=== PATIENT | female | born 1995 | race Caucasian/White ===

== ENCOUNTER 2019-07-22 15:07 | Emergency (ER) | payer MEDICAID, OTHER ==
[2019-07-22 15:53] LABS: BILIRUBIN,URINE NEGATIVE (NEGATIVE); GLUCOSE, URINE (UA) NEGATIVE (NEGATIVE); KETONES,URINE (UA) NEGATIVE (NEGATIVE); LEUKOCYTE ESTERASE, URINE NEGATIVE (NEGATIVE); NITRITE,URINE NEGATIVE (NEGATIVE); OCCULT BLOOD,URINE NEGATIVE (NEGATIVE); PH,URINE 6.5 PH (5.0-7.5); PROTEIN,URINE NEGATIVE (NEGATIVE); UROBILINOGEN,URINE 0.2 (NORMAL) E.U./dL (NORMAL)
--- NOTE | 2019-07-22 15:54 | ED Physician Documentation ---
History of Present Illness - Stated complaint Stated Complaint: UPPER ABD PX - Chief complaint Chief Complaint: Abd Pain - History obtained from History obtained from: Patient - Additonal information Additional information: Patient comes emergency department complaining of epigastric pain and burning with nausea for the last several days. Patient states that she has not been vomiting. No diarrhea or constipation. Patient has had some dysuria and she is concerned she may have a urinary tract infection. Patient states that she has a history of asthma but that this is not been bothering her lately. No fever or cough. Patient denies any shortness of breath. She has not been exposed to anybody who is been sick. She states she believes her brother may have had gallstones but is not sure if he had a cholecystectomy, as they are not close and she is not privy to that information.Patient states that the symptoms do not seem to be related to any particular activity, meals, or time of day. She has no known history of GERD or ulcer disease. She states that she herself does not have a history of gallstones. She is otherwise healthy. 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 She states she has a history of a tachycardic syndrome in which she Has heart rate elevations up into the 170s, but that this has not been an issue recently, and she has not been noticing tachycardia with her episodes of pain. She states that during the episodes of epigastric pain, which last approximately 1 to 2 hours, she occasionally feels a sense of palpitations. No other complaints at this time. Review of Systems Ten Systems: 10 systems reviewed and negative Constitutional: reports: Reviewed and negative Eyes: reports: Reviewed and negative Ears: reports: Reviewed and negative Nose: reports: Reviewed and negative Throat: reports: Reviewed and negative Cardiac: reports: Reviewed and negative Respiratory: reports: Reviewed and negative GI: reports: Abdominal Pain, Nausea : reports: Reviewed and negative Skin: reports: Reviewed and negative Musculoskeletal: reports: Reviewed and negative Neurologic: reports: Reviewed and negative Psychiatric: reports: Reviewed and negative Endocrine: reports: Reviewed and negative Immunocompromised: reports: Reviewed and negative PD PAST MEDICAL HISTORY - Past Medical History Past Medical History: Yes Respiratory: Asthma - Past Surgical History Past Surgical History: No - Present Medications Home Medications: Ambulatory Orders Medication Instructions Recorded Confirmed Omeprazole 20 mg PO DAILY 30 Days #30 07/22/19 capsule.dr - Allergies Allergies/Adverse Reactions: Allergies Allergy/AdvReac Type Severity Reaction Status Date / Time amoxicillin Allergy Unknown Verified 07/22/19 15:17 Iodinated Contrast Media Allergy Unknown Verified 07/22/19 15:17 iodine Allergy Unknown Verified 07/22/19 15:17 Sulfa (Sulfonamide Allergy Unknown Verified 07/22/19 15:17 Antibiotics) - Social History Does the pt smoke?: No Smoking Status: Never smoker Does the pt drink ETOH?: No Does the pt have substance abuse?: No - Immunizations Immunizations are current?: Yes - POLST Patient has POLST: No PD ED PE NORMAL - Vitals Vital signs reviewed: Yes - General General: Alert and oriented X 3, No acute distress - HEENT HEENT: Atraumatic, PERRL, EOMI, Moist mucous membranes - Neck Neck: Supple, no meningeal sign - Cardiac Cardiac: RRR, No murmur - Respiratory Respiratory: No respiratory distress, Clear bilaterally - Abdomen Abdomen: Soft, Non distended, Other (Patient has moderate epigastric tenderness without rebound or guarding. She has a 3 cm diameter aortic pulse.) - Back Back: No CVA TTP - Derm Derm: Normal color, Warm and dry, No rash - Extremities Extremities: No deformity - Neuro Neuro: Alert and oriented X 3 - Psych Psych: Normal mood, Normal affect Results - Vitals Vitals: Vital Signs - 24 hr 07/22/19 07/22/19 07/22/19 15:11 15:16 17:31 Temperature 36.2 C L 36.6 C Heart Rate 75 75 65 Respiratory 16 16 16 Rate Blood Pressure 114/76 114/76 115/69 O2 Saturation 96 96 100 07/22/19 18:32 Temperature Heart Rate 62 Respiratory 14 Rate Blood Pressure 102/60 O2 Saturation 100 Oxygen O2 Source Room air - Labs Labs: Laboratory Tests 07/22/19 15:45 Urine Color YELLOW Urine Clarity CLEAR Urine pH 6.5 Ur Specific [place] 1.025 Urine Protein NEGATIVE Urine Glucose (UA) NEGATIVE Urine Ketones NEGATIVE Urine Occult Blood NEGATIVE Urine Nitrite NEGATIVE Urine Bilirubin NEGATIVE Urine Urobilinogen 0.2 (NORMAL) Ur Leukocyte Esterase NEGATIVE Ur Microscopic Review NOT INDICATED Urine Culture Comments NOT INDICATED Urine HCG, Qual NEGATIVE - Rads (name of study) Chest x-ray Radiology: Final report received, EMP read indepedently, See rad report (Final radiologist impression:Normal 2 view chest radiography.) Limited abdominal ultrasound Radiology: Final report received, See rad report (Final radiologist interpretation: No gallstones or findings of acute cholecystitis or biliary dilatation.) PD MEDICAL DECISION MAKING - ED course Complexity details: reviewed results, re-evaluated patient, considered differential, d/w patient ED course: I discussed with the patient that her symptoms seem most consistent with reflux or gastritis. However, given the family history of gallstones, I did feel that patient should be evaluated for possible Sweetie lithiasis/cholecystitis. Ultrasound was ordered to this end, and was found to be normal. Urinalysis and chest x-ray were also checked, and negative. I discussed with the patient that I do not think that her history or physical exam indicates an aortic aneurysm. I feel she most likely has GERD or inlet gastritis as cause of her discomfort, and I will prescribe omeprazole for her. She may also use [id number] Mylanta or Maalox. She is encouraged to follow up with her primary care physician if her symptoms persist for more than a couple of weeks. We have also discussed the usual indications for return to the emergency department. Departure - Departure Disposition: 01 Home, Self Care Clinical Impression: Abdominal pain Qualifiers: Abdominal location: epigastric Qualified Code(s): R10.13 - Epigastric pain Condition: Good Instructions: ED Abdominal Pain Unkn Cause Prescriptions: Omeprazole 20 mg PO DAILY 30 Days #30 capsule. Comments: Your urinalysis, chest x-ray, and abdominal ultrasound all look good. Most likely, you have some degree of reflux of gastric contents that has caused inflammation of the latter portion of the esophagus and the upper part of the stomach. You may use [id number] Maalox or Mylanta to help with this, and you may also take the omeprazole prescribed. There is no evidence of an abdominal aortic aneurysm or other emergent condition today. Discharge Date/Time: 07/22/19 18:34
[2019-07-22 15:55] LABS: CLARITY,URINE CLEAR (CLEAR); HCG UR QUAL NEGATIVE
--- NOTE | 2019-07-22 16:43 | XRAY Report ---
Reason: chest pain Procedure Date: 07/22/2019 Accession Number: [id number] / [id number] Procedure: XR - Chest 2 View X-Ray CPT Code: 82762 Final Report FULL RESULT: EXAM: CHEST RADIOGRAPHY EXAM DATE: 07/22/2019 04:18 PM. CLINICAL HISTORY: Chest pain. COMPARISON: None. TECHNIQUE: 2 views. FINDINGS: Lungs/Pleura: No focal opacities evident. No pleural effusion. No pneumothorax. Normal volumes. Mediastinum: Heart and mediastinal contours are unremarkable. Other: None. IMPRESSION: Normal 2-view chest radiography. RADIA
--- NOTE | 2019-07-22 17:19 | Ultrasound Report ---
Reason: epigastric pain, nausea, FH gallstones Procedure Date: 07/22/2019 Accession Number: [id number] / [id number] Procedure: US - Abdomen Limited CPT Code: Final Report FULL RESULT: EXAM: ABDOMEN ULTRASOUND LIMITED, RUQ EXAM DATE: 07/22/2019 04:39 PM. CLINICAL HISTORY: Epigastric pain, nausea, FH gallstones. COMPARISON: None. TECHNIQUE: Real-time scanning was performed with static images obtained. FINDINGS: Liver: Normal in size and echotexture. cm. Main portal vein flow: Hepatopetal. Gallbladder: Normal. No stones, wall thickening, or sonographic Oviedo's sign. Biliary System: CBD measures 2 mm. No intrahepatic or extrahepatic ductal dilatation. Other: Right kidney measures 10 cm in length. No significant hydronephrosis. No perinephric fluid collection. IMPRESSION: 1. No gallstones or findings of acute cholecystitis or biliary dilatation. RADIA
[2019-07-22 18:33] VITALS: BP 102/60
== END 2019-07-22 18:34 | disposition home or self-care (01) ==
LOC: ED 15:07
DX: R10.13 Epigastric pain (principal)
CPT/HCPCS: 71046; 76705; 81001; 81003; 81025; 87086; 99284

== ENCOUNTER 2019-09-14 15:54 | Emergency (ER) | payer OTHER ==
[2019-09-14] MEDS ORDERED: predniSONE 20 MG TABLET PO STA ×2 (16:35→16:43)
[2019-09-14] MEDS ORDERED: FAMOTIDINE 20 MG TABLET PO STA (16:43)
--- NOTE | 2019-09-14 16:52 | ED Physician Documentation ---
History of Present Illness - Stated complaint Stated Complaint: THROAT SWELLING - Chief complaint Chief Complaint: Allergic Rx - History obtained from History obtained from: Patient - History of Present Illness Timing: Today Pain level max: 0 Pain level now: 0 - Additonal information Additional information: 24-year-old female states that she has a history of lupus. She states that she has frequent allergic reactions when her lupus is flaring. She states she felt like her throat was swelling earlier today. Took Benadryl. No difficulty breathing currently. No difficulty swallowing. No hives. States she normally gets steroids when this happens. Review of Systems Constitutional: denies: Fever, Chills GI: denies: Vomiting, Diarrhea : denies: Now EGA Skin: denies: Rash Musculoskeletal: denies: Neck pain, Back pain PD PAST MEDICAL HISTORY - Past Medical History Past Medical History: Yes Respiratory: Asthma - Past Surgical History Past Surgical History: No - Present Medications Home Medications: Ambulatory Orders Medication Instructions Recorded Confirmed Omeprazole 20 mg PO DAILY 30 Days #30 07/22/19 capsule. predniSONE [Deltasone] 10 mg PO [id number] #42 tab 09/14/19 - Allergies Allergies/Adverse Reactions: Allergies Allergy/AdvReac Type Severity Reaction Status Date / Time amoxicillin Allergy Unknown Verified 07/22/19 15:17 Iodinated Contrast Media Allergy Unknown Verified 07/22/19 15:17 iodine Allergy Unknown Verified 07/22/19 15:17 Sulfa (Sulfonamide Allergy Unknown Verified 07/22/19 15:17 Antibiotics) - Social History Does the pt smoke?: No Smoking Status: Never smoker Does the pt drink ETOH?: No Does the pt have substance abuse?: No - Immunizations Immunizations are current?: Yes - POLST Patient has POLST: No PD ED PE NORMAL - Vitals Vital signs reviewed: Yes - General General: Alert and oriented X 3, No acute distress, Well developed/nourished - HEENT HEENT: PERRL, Moist mucous membranes, Pharynx benign - Neck Neck: Supple, no meningeal sign - Cardiac Cardiac: RRR, No murmur - Respiratory Respiratory: No respiratory distress, Clear bilaterally, Other (No stridor. No wheezing.) - Abdomen Abdomen: Soft, Non tender, Non distended - Derm Derm: Warm and dry - Extremities Extremities: No edema - Neuro Neuro: Alert and oriented X 3 - Psych Psych: Normal mood, Normal affect Results - Vitals Vitals: Vital Signs - 24 hr 09/14/19 09/14/19 09/14/19 16:01 16:05 17:39 Temperature 36.9 C 36.9 C 36.8 C Heart Rate 91 91 88 Respiratory 16 16 14 Rate Blood Pressure 119/85 H 119/85 H 120/80 O2 Saturation 96 96 98 Oxygen O2 Source Room air PD MEDICAL DECISION MAKING - ED course Complexity details: reviewed results, re-evaluated patient, considered differential, d/w patient, d/w family ED course: Patient given prednisone and Pepcid in the emergency department. Monitored with no further evidence of allergic reaction. She states she is normally placed on a steroid taper. We will prescribe this for her. Patient counseled regarding signs and symptoms for which I believe and urgent re-evaluation would be necessary. Patient with good understanding of and agreement to plan and is comfortable going home at this time This document was made in part using voice recognition software. While efforts are made to proofread this document, sound alike and grammatical errors may occur. Departure - Departure Disposition: 01 Home, Self Care Clinical Impression: Allergic reaction Qualifiers: Encounter type: initial encounter Qualified Code(s): T78.40XA - Allergy, unspecified, initial encounter Condition: Good Instructions: ED Allergic Reaction General Other Follow-Up: your,doctor as needed. [Other] Prescriptions: predniSONE [Deltasone] 10 mg PO [id number] #42 tab Comments: Return if you worsen. Follow-up with your doctor for further care. Continue the prednisone taper. Discharge Date/Time: 09/14/19 17:39
[2019-09-14 17:40] VITALS: BP 120/80
== END 2019-09-14 17:39 | disposition home or self-care (01) ==
LOC: ED 15:54
DX: T78.40XA Allergy, unspecified, initial encounter (principal); X58.XXXA Exposure to other specified factors, initial encounter; M32.9 Systemic lupus erythematosus, unspecified
CPT/HCPCS: 99282; 99284; A9270; J7512

== ENCOUNTER 2019-10-03 18:26 | Emergency (ER) | payer OTHER ==
[2019-10-03 18:57] LABS: BASOPHILS % (AUTO) 0.3 %; EOSINOPHILS # (AUTO) 0.2 10^3/uL (0.0-0.7); EOSINOPHILS % (AUTO) 3.2 %; HGB - HEMOGLOBIN 13.2 g/dL (12.0-16.0); LYMPHOCYTES # (AUTO) 1.8 10^3/uL (1.5-3.5); LYMPHOCYTES % (AUTO) 28.4 %; MEAN CORPUSCULAR HGB CONC 33.6 g/dL (32.0-36.0); MEAN CORPUSCULAR VOLUME 92.3 fL (81.0-99.0); MEAN PLATELET VOLUME 9.7 fL (7.9-10.8); MONOCYTES # (AUTO) 0.7 10^3/uL (0.0-1.0); NEUTROPHILS # (AUTO) 3.5 10^3/uL (1.5-6.6); NEUTROPHILS % (AUTO) 56.8 %; PLT - PLATELET COUNT 196 10^3/uL (130-450); RED BLOOD COUNT 4.26 10^6/uL (4.20-5.40); RED CELL DISTRIBUTION WIDTH 12.3 % (12.0-15.0); WHITE BLOOD COUNT 6.2 x10^3/uL (4.8-10.8)
--- NOTE | 2019-10-03 19:07 | XRAY Report ---
PROCEDURE: Chest 1 View X-Ray INDICATIONS: Chest Pain TECHNIQUE: One view of the chest was acquired. COMPARISON: 07/22/2019 FINDINGS: Surgical changes and devices: None. Lungs and pleura: No pleural effusions or pneumothorax. Lungs are clear. Mediastinum: Mediastinal contours appear normal. Heart size is normal. Bones and chest wall: No suspicious bony lesions. Overlying soft tissues appear unremarkable. IMPRESSION: No acute cardiopulmonary pathology. Reviewed by: Jeffy Rubi MD on 10/03/2019 7:05 PM PDT Approved by: Jeffy Rubi MD on 10/03/2019 7:05 PM PDT Station ID: [id number]
[2019-10-03 19:10] LABS: ALBUMIN 4.2 g/dL (3.2-5.5); ALBUMIN/GLOBULIN RATIO 1.2 (1.0-2.2); BILIRUBIN,TOTAL 0.6 mg/dL (0.2-1.0); CREATININE 0.7 mg/dL (0.4-1.0); TOTAL PROTEIN 7.6 g/dL (6.7-8.2)
--- NOTE | 2019-10-03 19:50 | ED Physician Documentation ---
History of Present Illness - Stated complaint Stated Complaint: CP, LT ARM PX - Chief complaint Chief Complaint: Cardiac - History obtained from History obtained from: Patient - History of Present Illness Timing: Today Pain level max: 5 Pain level now: 5 - Additonal information Additional information: 24-year-old female presents the emergency department with substernal chest pain radiating to the left arm and left neck. Ongoing for several hours. Nothing makes it better or worse. Has had similar symptoms in the past with no cause found. She has also been feeling palpitations throughout the day. This is also occurred in the past. No shortness of breath. No nausea. No vomiting. No possibility of . No cardiac history. 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 syncope - Past Surgical History Past Surgical History: No HEENT: Tonsil/Adenoidectomy - Present Medications Home Medications: Ambulatory Orders Medication Instructions Recorded Confirmed Omeprazole 20 mg PO DAILY 30 Days #30 07/22/19 capsule. predniSONE [Deltasone] 10 mg PO [id number] #42 tab 09/14/19 - Allergies Allergies/Adverse Reactions: Allergies Allergy/AdvReac Type Severity Reaction Status Date / Time amoxicillin Allergy Unknown Verified 10/03/19 19:24 Iodinated Contrast Media Allergy Unknown Verified 10/03/19 19:24 iodine Allergy Unknown Verified 10/03/19 19:24 Sulfa (Sulfonamide Allergy Unknown Verified 10/03/19 19:24 Antibiotics) - Social History Does the pt smoke?: No Smoking Status: Never smoker Does the pt drink ETOH?: Yes Does the pt have substance abuse?: Yes Substance Use and Type: Marijuana - Immunizations Immunizations are current?: Yes - POLST Patient has POLST: No PD ED PE NORMAL - Vitals Vital signs reviewed: Yes - General General: Alert and oriented X 3, No acute distress, Well developed/nourished - HEENT HEENT: Moist mucous membranes - Neck Neck: Supple, no meningeal sign, No JVD, No bruit - Cardiac Cardiac: RRR, No murmur, Strong equal pulses - Respiratory Respiratory: No respiratory distress, Clear bilaterally, Other (No chest wall tenderness) - Abdomen Abdomen: Soft, Non tender, Non distended - Derm Derm: Warm and dry - Extremities Extremities: No edema, No calf tenderness / cord - Neuro Neuro: Alert and oriented X 3 - Psych Psych: Normal mood, Normal affect Results - Vitals Vitals: Vital Signs - 24 hr 10/03/19 10/03/19 10/03/19 18:37 18:51 19:15 Temperature 36.6 C Heart Rate 82 85 88 Respiratory 16 18 22 Rate Blood Pressure 125/71 125/76 112/75 O2 Saturation 98 100 98 Oxygen O2 Source Room air - EKG (time done) 1837 Rate: Rate (enter#) (109) Rhythm: NSR [place]: Normal Intervals: Normal VT QRS: Normal Ischemia: Non specific changes - Labs Labs: Laboratory Tests 10/03/19 10/03/19 10/03/19 18:45 18:45 18:45 WBC 6.2 RBC 4.26 Hgb 13.2 Hct 39.3 MCV 92.3 MCH 31.0 MCHC 33.6 RDW 12.3 Plt Count 196 MPV 9.7 Neut # (Auto) 3.5 Lymph # (Auto) 1.8 Randall # (Auto) 0.7 Eos # (Auto) 0.2 Baso # (Auto) 0.0 Absolute Nucleated RBC 0.00 Nucleated RBC % 0.0 Sodium 139 Potassium 3.7 Chloride 103 Carbon Dioxide 27 Anion Gap 9.0 BUN 8 Creatinine 0.7 Estimated GFR (MDRD) 104 Glucose 98 Calcium 9.0 Total Bilirubin 0.6 AST 15 ALT 14 Alkaline Phosphatase 48 Troponin I High Sens < 2.3 L Total Protein 7.6 Albumin 4.2 Globulin 3.4 Albumin/Globulin Ratio 1.2 Lipase 49 - Rads (name of study) cxr Radiology: Prelim report reviewed, EMP read contemporaneously, See rad report (Normal) PD MEDICAL DECISION MAKING - ED course Complexity details: reviewed results, re-evaluated patient, considered differential (No ST elevation ME, no aortic dissection, no PE, no tension pneumothorax, no aortic aneurysm), d/w patient ED course: Unclear etiology of her symptoms. I did review EKG tracings from her apple watch on her phone. She appears to have different morphologies of her P waves and conduction pathways on the various EKG tracings. Likely that she has an ectopic atrial pacemaker that is causing her palpitations. Patient is well- appearing, nontoxic. Afebrile. No significant lab abnormalities. Feels better after Toradol. No recent surgeries. No leg pain. No evidence of pulmonary embolus. No evidence of acute coronary syndrome. No murmur. Patient will follow-up with her doctor for further care as well as a likely referral to cardiology. Patient counseled regarding signs and symptoms for which I believe and urgent re-evaluation would be necessary. Patient with good understanding of and agreement to plan and is comfortable going home at this time This document was made in part using voice recognition software. While efforts are made to proofread this document, sound alike and grammatical errors may occur. Departure - Departure Disposition: 01 Home, Self Care Clinical Impression: Atypical chest pain, Ectopic atrial pacemaker Condition: Good Instructions: ED Chest Pain Atypical Unkn Cause Follow-Up: your,doctor in 1 week [Other] Comments: You appear to have an ectopic atrial pacemaker. This may be causing the palpitations. You should save the tracings and your doctor should refer you to a paraffin machine operator for further evaluation. Return if you worsen.
[2019-10-03] MEDS ORDERED: KETOROLAC 30 MG/ML VIAL IVP STA (19:58)
[2019-10-03 20:19] VITALS: BP 109/79
== END 2019-10-03 20:18 | disposition home or self-care (01) ==
LOC: ED 18:26
DX: R07.89 Other chest pain (principal); I49.1 Atrial premature depolarization; M32.9 Systemic lupus erythematosus, unspecified
CPT/HCPCS: 36415; 71045; 80053; 83690; 84484; 85025; 93005; 96374; 99284

== ENCOUNTER 2019-10-28 15:39 | Emergency (ER) | payer OTHER ==
[2019-10-28 15:48] VITALS: BP 113/65
[2019-10-28 16:02] LABS: BILIRUBIN,URINE NEGATIVE (NEGATIVE); CLARITY,URINE CLEAR (CLEAR); GLUCOSE, URINE (UA) NEGATIVE (NEGATIVE); KETONES,URINE (UA) NEGATIVE (NEGATIVE); LEUKOCYTE ESTERASE, URINE SMALL (NEGATIVE); NITRITE,URINE NEGATIVE (NEGATIVE); OCCULT BLOOD,URINE NEGATIVE (NEGATIVE); PH,URINE 7.5 PH (5.0-7.5); PROTEIN,URINE NEGATIVE (NEGATIVE); UROBILINOGEN,URINE 0.2 (NORMAL) E.U./dL (NORMAL)
[2019-10-28 16:03] LABS: HCG UR QUAL NEGATIVE
--- NOTE | 2019-10-28 16:03 | ED Physician Documentation ---
History of Present Illness - Stated complaint Stated Complaint: FEMALE - Chief complaint Chief Complaint: General - History obtained from History obtained from: Patient - History of Present Illness Timing: Prior to arrival - Additonal information Additional information: 24-year-old female presents to the emergency department to confirm . Patient reports her last menstrual period was September 13, 2019. She ultimately missed her September cycle and therefore took home test last week 3 times which were positive. However over the last 24 hours she began to have some lower abdominal cramping but no vaginal bleeding or spotting. She took a home test this morning and it was negative. pt denies focal abdominal pain, dysuria, urgency, frequency. She has no history of previous . Patient reports a history of lupus but states that she has not taken any medication for it for at least 5 to 6 months since she moved to the [place]. Review of Systems Constitutional: denies: Fever, Chills Cardiac: denies: Chest pain / pressure, Palpitations Respiratory: denies: Dyspnea, Cough GI: denies: Abdominal Pain, Abdominal Swelling, Nausea, Vomiting, Diarrhea : reports: LMP (09/13/2019), Missed period. 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 : None HEENT: None Musculoskeletal: Rheumatoid arthritis Derm: Other - Past Surgical History Past Surgical History: No HEENT: Tonsil/Adenoidectomy - Present Medications Home Medications: Ambulatory Orders Medication Instructions Recorded Confirmed No Known Home Medications 10/28/19 10/28/19 - Allergies Allergies/Adverse Reactions: Allergies Allergy/AdvReac Type Severity Reaction Status Date / Time amoxicillin Allergy Unknown Verified 10/28/19 16:03 Iodinated Contrast Media Allergy Unknown Verified 10/28/19 16:03 iodine Allergy Unknown Verified 10/28/19 16:03 Sulfa (Sulfonamide Allergy Unknown Verified 10/28/19 16:03 Antibiotics) - Social History Does the pt smoke?: No Smoking Status: Never smoker Does the pt drink ETOH?: Yes Does the pt have substance abuse?: Yes - Immunizations Immunizations are current?: Yes - POLST Patient has POLST: No PD ED PE NORMAL - General General: Alert and oriented X 3, No acute distress, Well developed/nourished - Cardiac Cardiac: RRR, No murmur - Abdomen Abdomen: Normal bowel sounds, Soft, Non tender - Back Back: No CVA TTP - Derm Derm: Normal color, Warm and dry, No rash - Extremities Extremities: No deformity Results - Vitals Vitals: Vital Signs - 24 hr 10/28/19 15:44 Temperature 36.7 C Heart Rate 85 Respiratory 16 Rate Blood Pressure 113/65 O2 Saturation 96 Oxygen O2 Source Room air - Labs Labs: Laboratory Tests 10/28/19 10/28/19 15:45 16:25 HCG, Quant < 0.60 Urine Color YELLOW Urine Clarity CLEAR Urine pH 7.5 Ur Specific [place] 1.015 Urine Protein NEGATIVE Urine Glucose (UA) NEGATIVE Urine Ketones NEGATIVE Urine Occult Blood NEGATIVE Urine Nitrite NEGATIVE Urine Bilirubin NEGATIVE Urine Urobilinogen 0.2 (NORMAL) Ur Leukocyte Esterase SMALL H Urine RBC None Seen Urine WBC 0-3 Ur Squamous Epith Cells MANY Squamous H Amorphous Sediment Moderate Urine Bacteria Few Ur Microscopic Review INDICATED Urine Culture Comments NOT INDICATED Urine HCG, Qual NEGATIVE PD MEDICAL DECISION MAKING - ED course Complexity details: reviewed results, d/w patient, d/w family ED course: 24-year-old female here to confirm as she missed her September menses. Reports positive test at home last week but this morning it was negative. Here in the emergency department her urine hCG is negative as well as her serum hCG. - As patient has a history of lupus I have advised her to follow-up closely with a primary care doctor before trying to become again. Departure - Departure Disposition: 01 Home, Self Care Clinical Impression: Menstrual period late Condition: Stable Comments: Both your urine and blood hCG levels are negative. You are not today. Please discuss this ED visit with your primary doctor. I think it is also important that you discuss family planning with your primary doctor before getting as you have a history of lupus
[2019-10-28 16:15] LABS: AMORPHOUS SEDIMENT,UR Moderate /LPF; BACTERIA,URINE Few /HPF (None Seen); RBC,URINE None Seen /HPF (0-5); SQUAMOUS EPITHELIAL CELL,UR MANY Squamous (<= Few)
== END 2019-10-28 17:11 | disposition home or self-care (01) ==
LOC: ED 15:39
DX: N91.0 Primary amenorrhea (principal); Z32.02 Encounter for pregnancy test, result negative; M32.9 Systemic lupus erythematosus, unspecified
CPT/HCPCS: 36415; 81001; 81003; 81025; 84702; 87086; 99283; 99284